=== PATIENT | male | born 1995 | race Two or more races ===

== ENCOUNTER 2016-11-15 02:11 | Emergency (ER) | payer OTHER ==
[~2016-11-15] VITALS: Ht 172.7 cm; Wt 63.5 kg
[2016-11-15 02:19] VITALS: BP 106/79
== END 2016-11-15 04:42 ==
LOC: ER 02:13
DX: S83.92XA Sprain of unspecified site of left knee, initial encounter (principal); X58.XXXA Exposure to other specified factors, initial encounter; Y93.9 Activity, unspecified; Y92.9 Unspecified place or not applicable; Y99.9 Unspecified external cause status
CPT/HCPCS: 73564; 99284; A4606; Z7610